=== PATIENT | male | born 1995 | race Asian ===

== ENCOUNTER 2019-12-09 00:50 | Emergency (ER) | payer BC ==
[~2019-12-09] VITALS: Ht 170.2 cm; Wt 61.2 kg
[2019-12-09 02:30] VITALS: BP 125/72
== END 2019-12-09 02:30 | disposition home or self-care (01) ==
LOC: ED 00:50
DX: S61.217A Laceration without foreign body of left little finger without damage to nail, initial encounter (principal); W26.8XXA Contact with other sharp object(s), not elsewhere classified, initial encounter; Y93.89 Activity, other specified; Y92.89 Other specified places as the place of occurrence of the external cause; Y99.8 Other external cause status
CPT/HCPCS: J2001